=== PATIENT | female | born 1970 ===

== ENCOUNTER 2018-03-02 04:16 | Emergency (ER) | payer OTHER ==
[2018-03-02 04:36] VITALS: RESP 18
--- NOTE | 2018-03-02 04:59 | C.PDOC ---
History Of Present Illness 47 year old female presents to the ED c/o left lower dental pain for the the past 3 days. Patient reports she took Tylenol OTC with no relief. Patient thinks she has broken crown but has not gone to see a dentist yet. Patient feels like her dental pain is radiating to her left ear. Patient denies fever, chills, nausea, vomit, headache, dizziness. Time Seen by Provider: 03/02/18 04:39 Chief Complaint (Nursing): Dental Pain History Per: Patient History/Exam Limitations: no limitations Onset/Duration Of Symptoms: Days Current Symptoms Are (Timing): Still Present Quality: Positive for: "Pain" Recent travel outside of the [place]: No Additional History Per: Patient Past Medical History Reviewed: Historical Data, Nursing Documentation, Vital Signs Vital Signs: Last Vital Signs Temp 98.5 F 03/02/18 04:27 Pulse 69 03/02/18 04:27 Resp 18 03/02/18 04:27 BP 130/83 03/02/18 04:27 Pulse Ox 96 03/02/18 05:07 - Medical History PMH: Asthma Denies: Chronic Kidney Disease Surgical History: No Surg Hx Family History: States: Unknown Family Hx - Social History Hx Alcohol Use: No Hx Substance Use: No - Immunization History Hx Tetanus Toxoid Vaccination: No Hx Influenza Vaccination: No Hx Pneumococcal Vaccination: No Review Of Systems Constitutional: Negative for: Fever, Chills ENT: Positive for: Mouth Pain. Negative for: Nose Discharge, Throat Pain, Throat Swelling Respiratory: Negative for: Cough, Shortness of Breath Gastrointestinal: Negative for: Nausea, Vomiting Skin: Negative for: Rash Neurological: Negative for: Headache Physical Exam - Physical Exam Appears: Non-toxic, No Acute Distress Skin: Normal Color, Warm, Dry Head: Atraumatic, Normacephalic, No Swelling (facial) Eye(s): bilateral: Normal Inspection Ear(s): Bilateral: Normal Oral Mucosa: Moist Teeth: Other (multiple cavities left lower posterior molar) Gingiva: Erythema (left lower gum) Throat: Normal, No Erythema, No Exudate Neck: Normal ROM, No Midline Cervical Tenderness, Supple Extremity: Normal ROM, No Tenderness, No Swelling Neurological/Psych: Oriented x3, Normal Speech Gait: Steady ED Course And Treatment O2 Sat by Pulse Oximetry: 96 (ON RA) Pulse Ox Interpretation: Normal Progress Note: Plan: - Motrin 800 mg PO. - Penicillin 500 mg PO. On reassessment, patient is resting comfortably, and is in no acute distress. Patient was instructed to follow up with physician/clinic in 1-2 days for further evaluation. 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 - Scribe Statement The provider has reviewed the documentation as recorded by the Scribe Sukumar Friedman All medical record entries made by the Scribe were at my direction and personally dictated by me. I have reviewed the chart and agree that the record accurately reflects my personal performance of the history, physical exam, medical decision making, and the department course for this patient. I have also personally directed, reviewed, and agree with the discharge instructions and disposition.
[2018-03-02 05:34] VITALS: BP 110/68; PULSE 62; TEMP 98.1
[2018-03-02 05:53] VITALS: O2SAT 96
== END 2018-03-02 05:34 | disposition home or self-care (01) ==
LOC: C.ER 04:16
DX: K02.9 Dental caries, unspecified (principal)